=== PATIENT | female | born 1960 | race Hispanic/Latino ===

== ENCOUNTER 2018-06-27 11:03 | Inpatient (IN) | payer OTHER ==
[~2018-06-27] VITALS: Ht 152.4 cm; Wt 93.9 kg
[2018-06-27] MEDS ORDERED: DIATRIZOATE MEGL/DIATRIZOA SOD 30 ML BTL PO ONE (11:32)
[2018-06-27 11:54] LABS: BASOPHILS # (AUTO) 0.1 (0.0-0.1); BASOPHILS % 0.3 % (0.0-1.0); HEMATOCRIT 42.4 % (34.2-44.1); HEMOGLOBIN 14.2 g/dL (12.0-16.0); LYMPHOCYTES # (AUTO) 2.3 (1.0-3.2); LYMPHOCYTES % 10.3 % (18.0-39.1); MEAN CORPUSCULAR HEMOGLOBIN 30.3 pg (28-32); MEAN CORPUSCULAR HGB CONC 33.5 g/dL (31-35); MEAN CORPUSCULAR VOLUME 90.6 fL (81-99); MONOCYTES # (AUTO) 1.4 (0.2-0.8); MONOCYTES % 6.2 % (4.4-11.3); NEUTROPHILS # (AUTO) 18.1 (2.1-6.9); NEUTROPHILS % 82.6 % (38.7-80.0); PLATELET COUNT 252 x10e3/uL (140-360); RED BLOOD COUNT 4.68 x10e6/uL (3.6-5.1); RED CELL DISTRIBUTION WIDTH 13.1 % (11.7-14.4)
[2018-06-27 12:07] LABS: INR 1.23; PROTHROMBIN TIME 14.6 seconds (11.9-14.5)
[2018-06-27 12:08] LABS: PARTIAL THROMBOPLASTIN TIME 31.7 seconds (23.8-35.5)
[2018-06-27 12:16] LABS: ALANINE AMINOTRANSFERASE 33 IU/L (0-55); ALBUMIN 3.4 g/dL (3.5-5.0); ALBUMIN/GLOBULIN RATIO 0.8 (0.8-2.0); ALKALINE PHOSPHATASE 65 IU/L (40-150); AMYLASE 31 U/L (25-125); ANION GAP 17.5 mmol/L (8-16); BLOOD UREA NITROGEN 13 mg/dL (7-26); BUN/CREATININE RATIO 11 (6-25); CALCIUM 9.7 mg/dL (8.4-10.2); CARBON DIOXIDE 25 mmol/L (22-29); CHLORIDE 92 mmol/L (98-107); CREATINE KINASE 48 IU/L (29-168); CREATININE, SERUM 1.14 mg/dL (0.57-1.11); EST GLOMERULAR FILTRATION RATE 49 ML/MIN (60-); MAGNESIUM 1.5 MG/DL (1.3-2.1); POTASSIUM 4.5 mmol/L (3.5-5.1); SODIUM 130 mmol/L (136-145)
[2018-06-27 12:18] LABS: LIPASE < 4 U/L (8-78)
[2018-06-27 12:19] LABS: GLUCOSE 403 mg/dL (74-118)
[2018-06-27] MEDS ORDERED: SODIUM CHLORIDE 0.9% 1000ML 1,000 ML IV ONE ×2 (12:30→13:55)
[2018-06-27] MEDS ORDERED: INSULIN REGULAR, HUMAN 100 UNIT/1 ML 3ML VIAL IV ONE (12:30)
[2018-06-27] MEDS ORDERED: ONDANSETRON HCL INJ 2 MG/ML VIAL IV STA (12:37)
[2018-06-27] MEDS ORDERED: MORPHINE SULFATE INJ 4 MG/ML INJ IV STA (12:37)
--- NOTE | 2018-06-27 12:42 | Diagnostic Imaging Report ---
EXAMINATION: CHEST SINGLE (PORTABLE) INDICATION: \S\ERMD ORDER \[id number] \S\1130 \S\Y COMPARISON: None FINDINGS: AP view TUBES and LINES: None. LUNGS: Low lung volumes. Increased interstitial lung markings. There is no evidence of pneumonia or pulmonary edema. PLEURA: No pleural effusion or pneumothorax. HEART AND MEDIASTINUM: The cardiomediastinal silhouette is unremarkable.. BONES AND SOFT TISSUES: No acute osseous lesion. Soft tissues are unremarkable. UPPER ABDOMEN: No free air under the diaphragm. IMPRESSION: Increased bilateral interstitial markings may relate to low lung volumes or mild edema. Signed by: Dr. Aditi Juares M.D. on 06/27/2018 12:39 PM
[2018-06-27 13:38] LABS: CLARITY,URINE SL CLOUDY (CLEAR); COLOR,URINE YELLOW (YELLOW); LEUKOCYTE ESTERASE ,URINE NEGATIVE (NEGATIVE); NITRITE,URINE NEGATIVE (NEGATIVE)
[2018-06-27 13:39] LABS: BILIRUBIN,URINE NEGATIVE (NEGATIVE); KETONES,URINE 2+ (NEGATIVE); PROTEIN,URINE DIPSTICK TRACE (NEGATIVE); URINE UROBILINOGEN 0.2 mg/dL (0.2 - 1)
[2018-06-27 14:16] LABS: BACTERIA,URINE RARE /HPF; EPITHELIAL CELLS,URINE RARE /LPF; WBC,URINE (MAN) 0-5 /HPF (0-5)
[2018-06-27] MEDS ORDERED: IOPAMIDOL 370 MG/ML 200 ML INFUS..BTL INJ ONE (14:42)
[2018-06-27] MEDS ORDERED: SODIUM CHLORIDE 0.9% 50ML 50 ML ONE (14:42)
--- NOTE | 2018-06-27 14:45 | Diagnostic Imaging Report ---
EXAM: CT Abdomen and Pelvis WITH contrast INDICATION: \S\LLQ and periumbilical abdominal pain \[id number] \S\[id number] \S\Y COMPARISON: None. TECHNIQUE: Abdomen and pelvis were scanned utilizing a multidetector helical scanner from the lung base to the pubic symphysis after administration of IV contrast. Coronal and sagittal reformations were obtained. Routine protocol was performed. Scan was performed when during portal venous phase. IV CONTRAST: 100 mL of Isovue-370 ORAL CONTRAST: Gastrografin RADIATION DOSE: Total DLP: 793.9 mGy*cm Estimated effective dose: (DLP x 0.015 x size factor) mSv COMPLICATIONS: None FINDINGS: LINES and TUBES: None. LOWER THORAX: Unremarkable HEPATOBILIARY: No focal hepatic lesions. No biliary ductal dilation. GALLBLADDER: Cholecystectomy. SPLEEN: No splenomegaly. PANCREAS: No focal masses or ductal dilatation. ADRENALS: No adrenal nodules KIDNEYS/URETERS: Kidneys enhance symmetrically. No hydronephrosis. No cystic or solid mass lesions. No stones. GI TRACT: No abnormal distention, wall thickening, or evidence of bowel obstruction. The appendix is dilated measuring 1.1 cm in diameter and surrounding by moderate amount of fat stranding. No free air or surrounding the appendix. Mild inflammatory changes of the adjacent loops of the small bowel. PELVIC ORGANS/BLADDER: Unremarkable. LYMPH NODES: No lymphadenopathy. VESSELS: Unremarkable. Incidental left retroaortic renal vein. PERITONEUM / RETROPERITONEUM: No free air or fluid. BONES: Mild degenerative changes of the lower thoracic and lumbar spine. SOFT TISSUES: Unremarkable. IMPRESSION: Acute nonperforated appendicitis. Signed by: Dr. Aditi Juares M.D. on 06/27/2018 2:42 PM
[2018-06-27] MEDS: PIPER-TAZ 3.375 GM 50 ML IV SCH ×3 (15:22→23:35)
[2018-06-27] MEDS ORDERED: SODIUM CHLORIDE 0.9% 1000ML 1,000 ML IV SCH (15:33)
[2018-06-27] MEDS ORDERED: ONDANSETRON HCL INJ 2 MG/ML VIAL IV PRN ×2 (15:45→19:45)
[2018-06-27] MEDS ORDERED: DEXTROSE 50% SYRINGE 50 ML IV PRN (15:45)
[2018-06-27 17:30] VITALS: BP 139/67
[2018-06-27] MEDS ORDERED: PROPOFOL IV EMULSION 10 MG/ML 20 ML VIAL ONE (17:37)
[2018-06-27] MEDS ORDERED: LIDOCAINE HCL 2% LOCAL INJ 5 ML SDV VIAL INJ ONE (17:37)
[2018-06-27] MEDS ORDERED: ONDANSETRON HCL INJ 2 MG/ML VIAL ONE (17:37)
[2018-06-27] MEDS ORDERED: EPHEDRINE SULFATE INJ 50 MG/10 ML SYR ONE (17:37)
[2018-06-27] MEDS ORDERED: GLYCOPYRROLATE INJ 1MG/ 5 ML SYR ONE (17:37)
[2018-06-27] MEDS ORDERED: ROCURONIUM BROMIDE 10 MG/ML 5ML VIAL ONE (17:37)
[2018-06-27] MEDS ORDERED: METOCLOPRAMIDE HCL 10 MG/2ML VIAL ONE (17:37)
[2018-06-27] MEDS ORDERED: DESFLURANE 240 ML BTL INH ONE (17:37)
[2018-06-27] MEDS ORDERED: NEOSTIGMINE 5 MG/5ML SYR ONE (17:37)
[2018-06-27 17:45] VITALS: BP 139/67
[2018-06-27] MEDS ORDERED: ACETAMINOPHEN 1000 MG/100 ML IV STA (17:54)
[2018-06-27] MEDS ORDERED: MIDAZOLAM HCL 2 MG/2 ML VIAL ONE (17:59)
[2018-06-27] MEDS ORDERED: FENTANYL CITRATE/PF 100MCG/2 ML INJ ONE ×2 (17:59→20:18)
[2018-06-27] MEDS: INSULIN REGULAR, HUMAN 100 UNIT/1 ML 3ML VIAL SQ SCH (18:07)
[2018-06-27] MEDS ORDERED: BUPIVACAINE HCL 0.5% INJ 30 ML VIAL INJ ONE (18:32)
--- NOTE | 2018-06-27 18:45 | Consultation ---
DATE OF CONSULTATION: June 27, 2018 REFERRING PHYSICIAN: HANNA MA M.D. HISTORY OF PRESENT ILLNESS: Patient is a 58-year-old female who presented with abdominal pain which she has had for 1 day. Pain is localized in the right lower quadrant. She has associated nausea and vomiting. She came the emergency room. CT scan of the abdomen and pelvis revealed findings suggestive of acute appendicitis. Patient says the pain has persisted unchanged since yesterday. PAST MEDICAL HISTORY: Patient has history of diabetes for which she takes insulin. She had previous cholecystectomy. ALLERGIES: SHE HAS ALLERGY TO STATINS. FAMILY HISTORY: Noncontributory. SOCIAL HISTORY: The patient does not smoke cigarettes or drink alcohol. REVIEW OF SYSTEMS: Is as stated above, otherwise was negative. PHYSICAL EXAMINATION: VITALS: Heart rate around 99. Temperature 101.4. GENERAL: The patient is awake and alert and in no distress. HEENT: Reveals no scleral icterus. NECK: Has no masses. LUNGS: Equal breath sounds. Clear bilaterally. CARDIAC: Regular rate and rhythm. No murmur. ABDOMEN: Tender in the right lower quadrant with signs of peritonitis localized in the right lower quadrant. There is no mass. No organomegaly. EXTREMITIES: Warm. There is no edema. NEUROLOGIC: Grossly intact. LABORATORY DATA: White blood cell count 21.9. Hemoglobin and hematocrit are normal. Chemistries reveal elevated glucose at 403. BUN and creatinine are normal. Electrolytes otherwise essentially normal. ASSESSMENT: A 58-year-old female with acute appendicitis. She will benefit from appendectomy, which I plan to schedule for today. The procedure was explained to the patient including risks, benefits and alternatives. She understands the procedure. She has had the opportunity to ask questions. She is aware of the possibility for open surgery. Thank you for asking me to see Ms. Acuña. Job#: [id number]
[2018-06-27 19:12] LABS: CREATINE KINASE MB 0.6 ng/mL (0-5.0)
[2018-06-27 19:30] VITALS: BP 124/63
[2018-06-27] MEDS: SODIUM CHLORIDE 0.9% 1000ML 1,000 ML IV SCH (19:38)
[2018-06-27] MEDS ORDERED: ACETAMINOPHEN 325 MG TAB PO PRN (19:45)
[2018-06-27] MEDS ORDERED: MORPHINE SULFATE 5 MG/ML VIAL IV PRN (19:45)
--- NOTE | 2018-06-27 20:41 | Operative Report ---
DATE OF PROCEDURE: June 27, 2018 PREOPERATIVE DIAGNOSIS: Acute appendicitis. POSTOPERATIVE DIAGNOSIS: Acute appendicitis with perforation. PROCEDURES 1. Diagnostic laparoscopy. 2. Laparoscopic appendectomy. ELECTRIC CRANE OPERATOR: None. ANESTHESIA: General. INDICATIONS AND FINDINGS: Patient is a 58-year-old female admitted with complaints of abdominal pain localized to right lower quadrant. Surgery based on acutely inflamed contained perforated appendicitis. TECHNIQUE: After adequate general endotracheal anesthesia, patient in supine position, the abdomen was prepped and draped in sterile fashion with La solution. Skin in the umbilicus was infiltrated with 0.5% Marcaine. Incision was made at the umbilicus. Abdominal wall was elevated and Veress needle was introduced. Pneumoperitoneum was then created. A 10-mm trocar and cannula was then passed through the umbilical wound. Laparoscopic camera was introduced. Initial laparoscopy revealed inflammatory process in right lower abdomen. A 12-mm trocar and cannula was placed suprapubically and a 5-mm trocar and cannula placed in right upper quadrant. These were placed under direct vision. There was small bowel and omentum adherent and was found to be acutely inflamed appendix with perforation. There were fibrinous adhesions, which were broken up. Small bowel was retracted away and freed up to the area of the appendix as was the omentum. Cecum was elevated and acutely inflamed appendix identified with the perforation near the base. Base of the appendix was dissected free proximal to the area of the perforation, a window was created between the base of the appendix and mesoappendix. The base of the appendix was divided close to the cecum with Endo RADHIKA stapler. Mesoappendix was then divided with Endo RADHIKA stapler also freeing the appendix completely. Appendix was placed into an Endopouch and brought out through the suprapubic cannula. Care was taken, it did not touch the abdominal wall. The area of the appendectomy was inspected for hemostasis, which was seen to be adequate. It was irrigated with saline. All fluid aspirated and inspected for hemostasis, which was seen to be adequate. There was seen to be a small hematoma in the mesentery of the terminal ileum, but this was observed and did not change in size. It did not appear to be in impinging on the bowel at all, which appeared viable. The peritoneal cavity was irrigated further with saline. All fluid aspirated and inspected for hemostasis once again, which was seen to be adequate. Instruments and cannulas were then removed. Pneumoperitoneum was evacuated. Wounds were then closed. Fascia in the umbilical and suprapubic wound closed with 0-Vicryl. Skin to all wounds closed with phyllis. Sterile dressings applied to each wound. The patient tolerated procedure well. Estimated blood loss was 10 mL. There were no complications. All counts were correct. Patient was taken to the recovery room in satisfactory condition. Job#: [id number] CQ
[2018-06-27 21:00] VITALS: BP 124/63
[2018-06-28 02:44] LABS: BASOPHILS # (AUTO) 0.1 (0.0-0.1); BASOPHILS % 0.3 % (0.0-1.0); HEMATOCRIT 37.8 % (34.2-44.1); HEMOGLOBIN 12.7 g/dL (12.0-16.0); LYMPHOCYTES # (AUTO) 1.3 (1.0-3.2); LYMPHOCYTES % 8.5 % (18.0-39.1); MEAN CORPUSCULAR HEMOGLOBIN 30.8 pg (28-32); MEAN CORPUSCULAR HGB CONC 33.6 g/dL (31-35); MEAN CORPUSCULAR VOLUME 91.5 fL (81-99); MONOCYTES # (AUTO) 0.7 (0.2-0.8); MONOCYTES % 4.5 % (4.4-11.3); NEUTROPHILS # (AUTO) 13.1 (2.1-6.9); NEUTROPHILS % 86.5 % (38.7-80.0); PLATELET COUNT 202 x10e3/uL (140-360); RED BLOOD COUNT 4.13 x10e6/uL (3.6-5.1); RED CELL DISTRIBUTION WIDTH 13.2 % (11.7-14.4)
[2018-06-28 02:58] LABS: CALCIUM 8.5 mg/dL (8.4-10.2)
[2018-06-28 03:38] LABS: CREATINE KINASE MB 1.1 ng/mL (0-5.0)
[2018-06-28 04:00] VITALS: BP 159/72
[2018-06-28] MEDS: SODIUM CHLORIDE 0.9% 1000ML 1,000 ML IV SCH ×2 (04:50→18:00)
[2018-06-28] MEDS: PIPER-TAZ 3.375 GM 50 ML IV SCH ×3 (05:15→22:00)
[2018-06-28] MEDS: INSULIN REGULAR, HUMAN 100 UNIT/1 ML 3ML VIAL SQ SCH ×5 (05:53→22:19)
[2018-06-28 07:35] VITALS: BP 155/70
[2018-06-28 07:55] VITALS: BP 155/70
[2018-06-28] MEDS: ACETAMINOPHEN 325 MG TAB PO PRN (09:24)
[2018-06-28] MEDS: MORPHINE SULFATE INJ 4 MG/ML INJ IV PRN ×2 (09:24→21:00)
[2018-06-28] MEDS: LISINOPRIL 20 MG TAB PO SCH (10:42)
[2018-06-28 12:00] VITALS: BP 131/66
[2018-06-28 16:00] VITALS: BP 135/62
[2018-06-28 20:00] VITALS: BP 128/57
[2018-06-28] MEDS: CARVEDILOL 3.125 MG TAB PO SCH (21:00)
[2018-06-28] MEDS ORDERED: INSULIN DETEMIR 100 UNIT/ML PEN SQ SCH (21:00)
[2018-06-28] MEDS ORDERED: CARVEDILOL 12.5 MG TAB PO SCH (21:00)
[2018-06-29] VITALS (7 sets, daily range): BP systolic 104–144; BP diastolic 55–64
[2018-06-29] MEDS: ACETAMINOPHEN 325 MG TAB PO PRN ×2 (01:04→15:58)
[2018-06-29] MEDS: SODIUM CHLORIDE 0.9% 1000ML 1,000 ML IV SCH (01:06)
[2018-06-29 05:43] LABS: BASOPHILS % 0.3 % (0.0-1.0); EOSINOPHILS # (AUTO) 0.2 (0.0-0.4); EOSINOPHILS % 1.4 % (0.0-6.0); HEMATOCRIT 32.2 % (34.2-44.1); HEMOGLOBIN 10.5 g/dL (12.0-16.0); LYMPHOCYTES # (AUTO) 1.6 (1.0-3.2); LYMPHOCYTES % 10.7 % (18.0-39.1); MEAN CORPUSCULAR HEMOGLOBIN 30.3 pg (28-32); MEAN CORPUSCULAR HGB CONC 32.6 g/dL (31-35); MEAN CORPUSCULAR VOLUME 93.1 fL (81-99); MONOCYTES # (AUTO) 0.7 (0.2-0.8); MONOCYTES % 4.4 % (4.4-11.3); NEUTROPHILS # (AUTO) 12.6 (2.1-6.9); NEUTROPHILS % 82.2 % (38.7-80.0); PLATELET COUNT 176 x10e3/uL (140-360); RED BLOOD COUNT 3.46 x10e6/uL (3.6-5.1); RED CELL DISTRIBUTION WIDTH 13.3 % (11.7-14.4)
[2018-06-29] MEDS: PIPER-TAZ 3.375 GM 50 ML IV SCH ×3 (06:00→21:50)
[2018-06-29] MEDS: INSULIN REGULAR, HUMAN 100 UNIT/1 ML 3ML VIAL SQ SCH ×3 (06:00→18:30)
[2018-06-29 06:07] LABS: ANION GAP 9.7 mmol/L (8-16); BLOOD UREA NITROGEN 14 mg/dL (7-26); BUN/CREATININE RATIO 17 (6-25); CALCIUM 8.2 mg/dL (8.4-10.2); CARBON DIOXIDE 23 mmol/L (22-29); CHLORIDE 104 mmol/L (98-107); CREATININE, SERUM 0.81 mg/dL (0.57-1.11); EST GLOMERULAR FILTRATION RATE > 60 ML/MIN (60-); GLUCOSE 81 mg/dL (74-118); MAGNESIUM 1.6 MG/DL (1.3-2.1); POTASSIUM 3.7 mmol/L (3.5-5.1); SODIUM 133 mmol/L (136-145)
[2018-06-29] MEDS: HYDROCODONE/APAP 5MG-325MG TAB PO PRN (09:02)
[2018-06-29] MEDS: LISINOPRIL 20 MG TAB PO SCH (09:03)
[2018-06-29] MEDS ORDERED: NPH, HUMAN INSULIN ISOPHANE 100 UNIT/1 ML 3ML VIAL SQ NR (12:15)
[2018-06-29] MEDS ORDERED: SIMETHICONE 80 MG CHEW PO PRN (15:30)
[2018-06-29] MEDS: CARVEDILOL 3.125 MG TAB PO SCH (20:22)
[2018-06-30] VITALS (9 sets, daily range): BP systolic 118–163; BP diastolic 56–74
[2018-06-30] MEDS: INSULIN REGULAR, HUMAN 100 UNIT/1 ML 3ML VIAL SQ SCH ×4 (00:30→18:15)
[2018-06-30 05:18] LABS: BASOPHILS % 0.3 % (0.0-1.0); EOSINOPHILS # (AUTO) 0.4 (0.0-0.4); EOSINOPHILS % 2.8 % (0.0-6.0); HEMATOCRIT 31.1 % (34.2-44.1); HEMOGLOBIN 10.1 g/dL (12.0-16.0); LYMPHOCYTES # (AUTO) 1.4 (1.0-3.2); LYMPHOCYTES % 10.9 % (18.0-39.1); MEAN CORPUSCULAR HEMOGLOBIN 30.1 pg (28-32); MEAN CORPUSCULAR HGB CONC 32.5 g/dL (31-35); MEAN CORPUSCULAR VOLUME 92.8 fL (81-99); MONOCYTES # (AUTO) 0.6 (0.2-0.8); MONOCYTES % 4.8 % (4.4-11.3); NEUTROPHILS # (AUTO) 10.5 (2.1-6.9); NEUTROPHILS % 80.7 % (38.7-80.0); PLATELET COUNT 213 x10e3/uL (140-360); RED BLOOD COUNT 3.35 x10e6/uL (3.6-5.1); RED CELL DISTRIBUTION WIDTH 13.4 % (11.7-14.4)
[2018-06-30] MEDS: PIPER-TAZ 3.375 GM 50 ML IV SCH ×3 (05:41→22:18)
[2018-06-30 05:44] LABS: ANION GAP 8.8 mmol/L (8-16); BLOOD UREA NITROGEN 15 mg/dL (7-26); BUN/CREATININE RATIO 17 (6-25); CALCIUM 8.6 mg/dL (8.4-10.2); CARBON DIOXIDE 25 mmol/L (22-29); CHLORIDE 104 mmol/L (98-107); CREATININE, SERUM 0.87 mg/dL (0.57-1.11); EST GLOMERULAR FILTRATION RATE > 60 ML/MIN (60-); GLUCOSE 284 mg/dL (74-118); POTASSIUM 3.8 mmol/L (3.5-5.1); SODIUM 134 mmol/L (136-145)
[2018-06-30] MEDS ORDERED: INSULIN DETEMIR 100 UNIT/ML PEN SQ SCH (07:30)
[2018-06-30] MEDS: LISINOPRIL 20 MG TAB PO SCH (08:50)
[2018-06-30] MEDS: HYDROCODONE/APAP 5MG-325MG TAB PO PRN (14:14)
[2018-06-30] MEDS ORDERED: INSULIN DETEMIR 100 UNIT/ML PEN SQ NR (16:15)
[2018-06-30] MEDS: CARVEDILOL 3.125 MG TAB PO SCH (20:04)
[2018-07-01] VITALS: BP 156/69
[2018-07-01] MEDS: INSULIN REGULAR, HUMAN 100 UNIT/1 ML 3ML VIAL SQ SCH ×3 (00:30→12:14)
[2018-07-01 04:00] VITALS: BP 151/72
[2018-07-01] MEDS: PIPER-TAZ 3.375 GM 50 ML IV SCH (05:58)
[2018-07-01 06:18] LABS: BASOPHILS % 0.4 % (0.0-1.0); EOSINOPHILS # (AUTO) 0.4 (0.0-0.4); EOSINOPHILS % 4.1 % (0.0-6.0); HEMATOCRIT 31.3 % (34.2-44.1); HEMOGLOBIN 10.3 g/dL (12.0-16.0); LYMPHOCYTES # (AUTO) 1.8 (1.0-3.2); LYMPHOCYTES % 18.3 % (18.0-39.1); MEAN CORPUSCULAR HEMOGLOBIN 30.1 pg (28-32); MEAN CORPUSCULAR HGB CONC 32.9 g/dL (31-35); MEAN CORPUSCULAR VOLUME 91.5 fL (81-99); MONOCYTES # (AUTO) 0.7 (0.2-0.8); MONOCYTES % 7.4 % (4.4-11.3); NEUTROPHILS # (AUTO) 6.7 (2.1-6.9); NEUTROPHILS % 69.3 % (38.7-80.0); PLATELET COUNT 233 x10e3/uL (140-360); RED BLOOD COUNT 3.42 x10e6/uL (3.6-5.1); RED CELL DISTRIBUTION WIDTH 13.4 % (11.7-14.4)
[2018-07-01] MEDS: ALBUTEROL/IPRATROPIUM 3 ML NEB NEB SCH ×3 (07:00→14:33)
[2018-07-01 07:15] VITALS: BP 189/87
[2018-07-01] MEDS ORDERED: INSULIN DETEMIR 100 UNIT/ML PEN SQ SCH (07:30)
[2018-07-01 08:09] VITALS: BP 189/87
[2018-07-01] MEDS: LISINOPRIL 20 MG TAB PO SCH (08:53)
--- NOTE | 2018-07-01 09:02 | Diagnostic Imaging Report ---
PROCEDURE: CHEST SINGLE (PORTABLE) COMPARISON: 06/27/2018. INDICATIONS: WHEEZING, SHORTNESS OF BREATH FINDINGS: Decreased aeration of the lungs relative to 06/27/2018. Worsening linear airspace opacities in the mid and lower lung zones. No new consolidation or effusion. Stable cardiomediastinal contour accounting for differences in technique. Mild prominence of the pulmonary interstitium is unchanged. No acute osseous abnormality. CONCLUSION: Low lung volumes with worsening subsegmental atelectasis in the mid and lower lung zones. Dictated by: Shaheed Redding M.D. on 07/01/2018 at 7:27 Electronically approved by: Shaheed Redding M.D. on 07/01/2018 at 7:27
[2018-07-01 09:15] LABS: EOSINOPHILS % (MANUAL) 5 % (0-7); LYMPHOCYTES % (MANUAL) 10 % (19-48); MONOCYTES % (MANUAL) 3 % (3.4-9.0); NEUTROPHILS % (MANUAL) 76 % (40-74)
[2018-07-01 09:16] LABS: ANISOCYTOSIS SLIGHT; HYPOCHROMASIA SLIGHT; PLATELET ESTIMATE ADEQUATE; RBC MORPHOLOGY COMMENT NORMAL
[2018-07-01 09:17] LABS: PLATELET MORPHOLOGY COMMENT NORMAL; POIKILOCYTOSIS SLIGHT
[2018-07-01 12:13] VITALS: BP 177/86
[2018-07-01 12:40] VITALS: BP 158/74
[2018-07-01] MEDS ORDERED: INSULIN DETEMIR 100 UNIT/ML PEN SQ ONE (13:45)
[2018-07-01] MEDS ORDERED: METRONIDAZOLE 500 MG TAB PO ONE (14:00)
[2018-07-01] MEDS ORDERED: LEVOFLOXACIN 500 MG TAB PO ONE (14:00)
[2018-07-01] MEDS ORDERED: LACTULOSE SYRUP 20 GM/30 ML UDC PO NR (14:00)
[2018-07-01] MEDS ORDERED: LISINOPRIL 10 MG TAB PO NR (14:00)
--- NOTE | 2018-07-01 14:14 | Discharge Summary ---
PRIMARY CARE DOCTOR: Gildardo Ordoñez MD, with [facility]. FINAL DIAGNOSIS: Sepsis present on admission due to perforated appendicitis. SECONDARY DIAGNOSES 1. Hyponatremia, resolving. 2. Uncontrolled diabetes, better. 3. Uncontrolled hypertension, better. APPLICATIONS ENGINEER MANUFACTURING: Dr. Cuenca, surgeon. PROCEDURES/STUDIES PERFORMED 1. CT of the abdomen and pelvis. 2. Laparoscopic appendectomy. HISTORY: Per [facility]. HOSPITAL COURSE: The patient underwent emergent laparoscopic appendectomy. The patient was put on Zosyn. Her white blood cell count is normal now. The patient is tolerating p.o. Today is postop day #4. I have discussed with Dr. Cuenca. The patient will go home today and follow up with him next week. She will go home on Levaquin and Flagyl for 5 more days. Twenty pills of Tylenol No. 3 have been prescribed for pain. The patient was seen and examined today. It took 32 minutes total to discharge this patient. CONDITION ON DISCHARGE: Improved. DISCHARGE MEDICATIONS: Please see medication reconciliation form. Job#: [id number] cc:GILDARDO ORDOÑEZ MD
[2018-07-01] MEDS ORDERED: LEVAQUIN500 MG PO (15:36)
[2018-07-01] MEDS ORDERED: TYLENOL WITH C1 EACH PO (15:37)
[2018-07-01] MEDS ORDERED: FLAGYL250 MG PO (15:37)
== END 2018-07-01 16:12 | disposition home or self-care (01) | DRG 854 ==
LOC: ER 11:03 → ERHOLD 15:48 → MED/SURG3 17:29
PROVIDERS: ADMIT Internal Medicine; ATTEND Internal Medicine
PROC: 0DTJ4ZZ Resection of Appendix, Percutaneous Endoscopic Approach (ICD-10-PCS; principal; 2018-06-27 18:54)
DX: A41.9 Sepsis, unspecified organism (principal); E87.1 Hypo-osmolality and hyponatremia; K37 Unspecified appendicitis; I10 Essential (primary) hypertension; E11.65 Type 2 diabetes mellitus with hyperglycemia; E78.5 Hyperlipidemia, unspecified
CPT/HCPCS: 36415; 71045; 74177; 80048; 80053; 81001; 82150; 82550; 82553; 82948; 83605; 83690; 83735; 84484; 85025; 85610; 85730; 87040; 88304; 93005; 96372; 99284; J2001; J2250; J2270; J2405; J2543; J2765; J7030; Q9967